=== PATIENT | male | born 1950 | race Caucasian/White ===

== ENCOUNTER 2018-06-16 09:41 | Outpatient (CLI) | payer OTHER ==
[2018-06-16 19:05] LABS: ALBUMIN 4.7 g/dL (3.2-5.5); ALBUMIN/GLOBULIN RATIO 1.3 (1.0-2.2); ALKALINE PHOSPHATASE 56 IU/L (42-121); ALT ALANINE AMINOTRANSFERASE 57 IU/L (10-60); AST ASPARTATE AMINOTRANSFERASE 76 IU/L (10-42); BILIRUBIN,TOTAL 0.9 mg/dL (0.2-1.0); BUN - BLOOD UREA NITROGEN 17 mg/dL (6-20); CALCIUM 9.1 mg/dL (8.5-10.3); CARBON DIOXIDE - CO2 29 mmol/L (21-32); CHLORIDE 98 mmol/L (101-111); CHOL/HDL RATIO 2.2 (<5.0); CHOLESTEROL 251 mg/dL; GFR - MDRD 75 (>89); GLUCOSE 100 mg/dL (70-100); HDL CHOLESTEROL 112 mg/dL; LDL CHOLESTEROL,CALCULATED 119 mg/dL; LDL/HDL RATIO 1.1 (<3.6); SODIUM 139 mmol/L (135-145); TOTAL PROTEIN 8.3 g/dL (6.7-8.2); VLDL CHOLESTEROL 20 mg/dL
[2018-06-16 19:12] LABS: THYROID STIMULATING HORMONE 3.18 uIU/mL (0.34-5.60)
[2018-06-16 19:22] LABS: BASOPHILS % (AUTO) 1.1 %; EOSINOPHILS # (AUTO) 0.1 10^3/uL (0.0-0.7); EOSINOPHILS % (AUTO) 2.7 %; HGB - HEMOGLOBIN 15.6 g/dL (14.0-18.0); LYMPHOCYTES # (AUTO) 0.9 10^3/uL (1.5-3.5); LYMPHOCYTES % (AUTO) 29.3 %; MEAN CORPUSCULAR HEMOGLOBIN 35.9 pg (27.0-31.0); MEAN CORPUSCULAR HGB CONC 33.2 g/dL (32.0-36.0); MEAN CORPUSCULAR VOLUME 108.2 fL (80.0-94.0); MONOCYTES # (AUTO) 0.3 10^3/uL (0.0-1.0); MONOCYTES % (AUTO) 10.4 %; NEUTROPHILS # (AUTO) 1.8 10^3/uL (1.5-6.6); NEUTROPHILS % (AUTO) 56.5 %; PLT - PLATELET COUNT 116 10^3/uL (130-450); RED BLOOD COUNT 4.34 10^6/uL (4.70-6.10); RED CELL DISTRIBUTION WIDTH 13.8 % (12.0-15.0); WHITE BLOOD COUNT 3.2 x10^3/uL (4.8-10.8)
[2018-06-16 19:45] LABS: HB2 TOTAL 16.6 g/dL; HEMOGLOBIN A1C 0.56 g/dL; HEMOGLOBIN A1C % 5.2 % (4.6-6.2)
[2018-06-17 14:37] LABS: HEPATITIS C ANTIBODY NON-REACTIVE (NON-REACTIVE)
== END 2018-06-16 09:42 | disposition home or self-care (01) ==
LOC: LAB.F 09:41
PROVIDERS: ATTEND Internal Medicine
DX: I10 Essential (primary) hypertension (principal); Z13.6 Encounter for screening for cardiovascular disorders; Z12.5 Encounter for screening for malignant neoplasm of prostate; R20.0 Anesthesia of skin; Z79.899 Other long term (current) drug therapy
CPT/HCPCS: 36415; 80053; 80061; 81001; 81003; 82607; 82746; 83036; 83721; 84153; 84443; 85025; 86803; 87086

== ENCOUNTER 2018-06-17 13:08 | Outpatient (CLI) | payer OTHER ==
[2018-06-17 17:56] LABS: BILIRUBIN,URINE NEGATIVE (NEGATIVE); GLUCOSE, URINE (UA) NEGATIVE (NEGATIVE); KETONES,URINE (UA) 15 mg/dL (NEGATIVE); LEUKOCYTE ESTERASE, URINE NEGATIVE (NEGATIVE); NITRITE,URINE NEGATIVE (NEGATIVE); OCCULT BLOOD,URINE LARGE (NEGATIVE); PH,URINE 6.5 PH (5.0-7.5); PROTEIN,URINE TRACE mg/dL (NEGATIVE); UROBILINOGEN,URINE 0.2 (NORMAL) E.U./dL (NORMAL)
[2018-06-17 17:58] LABS: CLARITY,URINE CLOUDY (CLEAR)
[2018-06-17 18:08] LABS: BACTERIA,URINE None Seen /HPF (None Seen); RBC,URINE TNTC /HPF (0-5); SQUAMOUS EPITHELIAL CELL,UR NONE SEEN (<= Few)
== END 2018-06-17 13:09 | disposition home or self-care (01) ==
LOC: LAB.F 13:08
PROVIDERS: ATTEND Internal Medicine
DX: Z12.11 Encounter for screening for malignant neoplasm of colon (principal); Z12.12 Encounter for screening for malignant neoplasm of rectum; I10 Essential (primary) hypertension
CPT/HCPCS: 81001; 81003; 82274; 87086

== ENCOUNTER 2019-01-30 16:15 | Emergency (ER) | payer MEDICARE, OTHER ==
[2019-01-30 16:28] VITALS: BP 191/95
[2019-01-30] MEDS ORDERED: ONDANSETRON 4 MG/2 ML VIAL IVP STA (16:31)
[2019-01-30] MEDS ORDERED: KETOROLAC 30 MG/ML VIAL IVP STA (16:31)
--- NOTE | 2019-01-30 16:33 | ED Physician Documentation ---
PD HPI ABD PAIN - Stated complaint Stated Complaint: LEFT SIDE PAIN - Chief complaint Chief Complaint: Abd Pain - History obtained from History obtained from: Patient - History of Present Illness Timing - onset: Today (5 days ago he was cutting wood, he fell over backwards and hit his buttock and left side. It was not really bothering him much. Today after breakfast he developed severe left flank and left lower abdominal pain that comes in waves and is made him nauseous. He tried to have a bowel movement and nothing changed. No urinary complaints. No history of renal colic.) Review of Systems Constitutional: reports: Reviewed and negative Nose: denies: Rhinorrhea / runny nose Cardiac: denies: Chest pain / pressure, Palpitations Respiratory: denies: Dyspnea, Cough GI: reports: Abdominal Pain, Nausea. denies: Vomiting, Constipation, Diarrhea PD PAST MEDICAL HISTORY - Past Medical History Past Medical History: Yes Cardiovascular: Hypertension Respiratory: None Endocrine/Autoimmune: None GI: None : None HEENT: None Psych: Anxiety, Panic attacks Musculoskeletal: None Derm: None - Past Surgical History Past Surgical History: Yes General: Hiatal hernia repair - Present Medications Home Medications: Ambulatory Orders Medication Instructions Recorded Confirmed Atenolol 25 mg PO BID 12/28/13 12/29/13 Lisinopril 40 mg PO DAILY 12/28/13 12/29/13 Ibuprofen [Motrin] 800 mg PO Q8H PRN #30 tablet 01/30/19 Ondansetron Odt [Zofran] 4 mg TL Q6H PRN #10 tablet 01/30/19 Oxycodone HCl/Acetaminophen 1 - 2 each PO Q6H PRN #14 tablet 01/30/19 [Percocet 5-325 mg Tablet] Tamsulosin [Flomax] 0.4 mg PO DAILY #14 capsule 01/30/19 - Allergies Allergies/Adverse Reactions: Allergies Allergy/AdvReac Type Severity Reaction Status Date / Time No Known Drug Allergies Allergy Verified 12/28/13 13:28 - Social History Does the pt smoke?: Yes Smoking Status: Former smoker Does the pt drink ETOH?: No Does the pt have substance abuse?: No - Immunizations Immunizations are current?: No - POLST Patient has POLST: No PD ED PE NORMAL - Vitals Vital signs reviewed: Yes - General General: Alert and oriented X 3, No acute distress - Cardiac Cardiac: RRR, No murmur - Respiratory Respiratory: No respiratory distress, Clear bilaterally - Abdomen Abdomen: Normal bowel sounds, Soft, Non tender - Back Back: No CVA TTP, No spinal TTP - Extremities Extremities: No edema, No calf tenderness / cord - Neuro Neuro: Alert and oriented X 3, Normal speech Results - Vitals Vitals: Vital Signs - 24 hr 01/30/19 16:18 Temperature 36.5 C Heart Rate 107 H Respiratory 14 Rate Blood Pressure 191/95 H O2 Saturation 97 Oxygen O2 Source Room air - Labs Labs: Laboratory Tests 01/30/19 01/30/19 01/30/19 16:50 16:50 17:50 WBC 6.5 RBC 4.18 L Hgb 15.6 Hct 44.8 MCV 107.2 H MCH 37.3 H MCHC 34.8 RDW 12.1 Plt Count 113 L MPV 10.1 Neut # (Auto) 4.6 Lymph # (Auto) 1.0 L [place] # (Auto) 0.7 Eos # (Auto) 0.0 Baso # (Auto) 0.1 Absolute Nucleated RBC 0.00 Nucleated RBC % 0.0 Sodium 138 Potassium 4.3 Chloride 97 L Carbon Dioxide 26 Anion Gap 15.0 H BUN 21 H Creatinine 1.2 Estimated GFR (MDRD) 60 L Glucose 119 H Calcium 9.3 Total Bilirubin 1.3 H AST 93 H ALT 48 Alkaline Phosphatase 76 Total Protein 7.8 Albumin 4.5 Globulin 3.3 Albumin/Globulin Ratio 1.4 Lipase 26 Urine Color YELLOW Urine Clarity CLEAR Urine pH 6.5 Ur Specific [place] 1.025 Urine Protein 30 H Urine Glucose (UA) NEGATIVE Urine Ketones 15 H Urine Occult Blood SMALL H Urine Nitrite NEGATIVE Urine Bilirubin NEGATIVE Urine Urobilinogen 1 (NORMAL) Ur Leukocyte Esterase NEGATIVE Urine RBC 6-10 H Urine WBC 0-3 Ur Squamous Epith Cells NONE SEEN Urine Bacteria None Seen Ur Microscopic Review INDICATED Urine Culture Comments NOT INDICATED - Rads (name of study) CT KUB Radiology: EMP read contemporaneously (Moderate left hydronephrosis, hydroureter, perinephric stranding due to a 5 x 3 mm obstructing stone at the left UVJ. Fatty liver, isodensity of 3.6 x 3.6 cm within segment 2 of the liver, needs follow-up imaging. Mild pancreatic fat stranding. Diverticulosis without diverticulitis.) PD MEDICAL DECISION MAKING - ED course ED course: 68-year-old gentleman with mild trauma, this was followed after a delay by pain most reminiscent of renal colic which is proven on CT. Incidental findings as shown and discussed with patient's and the important a follow-up was noted. He will also decrease his alcohol use a little bit. He did not want any narcotic pain medication here, he was driving. Departure - Departure Disposition: 01 Home, Self Care Clinical Impression: Renal colic, Liver mass Condition: Good Record reviewed to determine appropriate education?: Yes Instructions: ED Stone Renal W Colic Prescriptions: Ibuprofen [Motrin] 800 mg PO Q8H PRN #30 tablet PRN Reason: PAIN &/OR FEVER Ondansetron Odt [Zofran] 4 mg TL Q6H PRN #10 tablet PRN Reason: Nausea / Vomiting Oxycodone HCl/Acetaminophen [Percocet 5-325 mg Tablet] 1 - 2 each PO Q6H PRN #14 tablet PRN Reason: pain Tamsulosin [Flomax] 0.4 mg PO DAILY #14 capsule Comments: If the pain lasts for more than a few days, call the [facility] for follow- up with urologist. Return for new or worsening symptoms. Also as discussed you have a lesion in your liver. It is unclear what this represents. Needs further work-up with Dr. Ramírez, either with a liver specific MRI or a liver specific CT. Return for new or worsening symptoms. Try to cut down on alcohol and do not drink or drive with prescription pain medications. Your blood pressure was elevated today on check into the emergency department. This does not mean that you have hypertension, it is a common phenomenon to come to the emergency department and have elevated blood pressure. I recommend that you see your primary care physician within the week to have it rechecked when you are feeling better. Do not drink or drive while taking narcotic pain medication. Note that many narcotic pain relievers also contain Tylenol/acetaminophen. Please ensure that your total dose of acetaminophen from all sources does not exceed 3 g (3000 mg) per day. You may get constipated while on this medication. Take a stool softener such as Colace twice a day while you are on it. Also add an rjuo-hfl-bbtiwyk laxative such as senna or MiraLAX on any day that you do not have a bowel movement. If you received a narcotic pain medication or sedative while in the emergency department, do not drive for the next 24 hours.
[2019-01-30] MEDS ORDERED: SODIUM CHLORIDE 0.9% 1,000 ML IV ONE (16:55)
[2019-01-30 16:57] LABS: BASOPHILS # (AUTO) 0.1 10^3/uL (0.0-0.1); BASOPHILS % (AUTO) 1.1 %; EOSINOPHILS % (AUTO) 0.3 %; HGB - HEMOGLOBIN 15.6 g/dL (14.0-18.0); LYMPHOCYTES % (AUTO) 15.4 %; MEAN CORPUSCULAR HEMOGLOBIN 37.3 pg (27.0-31.0); MEAN CORPUSCULAR HGB CONC 34.8 g/dL (32.0-36.0); MEAN CORPUSCULAR VOLUME 107.2 fL (80.0-94.0); MEAN PLATELET VOLUME 10.1 fL (7.4-11.4); MONOCYTES # (AUTO) 0.7 10^3/uL (0.0-1.0); MONOCYTES % (AUTO) 11.4 %; NEUTROPHILS # (AUTO) 4.6 10^3/uL (1.5-6.6); NEUTROPHILS % (AUTO) 71.6 %; PLT - PLATELET COUNT 113 10^3/uL (130-450); RED BLOOD COUNT 4.18 10^6/uL (4.70-6.10); RED CELL DISTRIBUTION WIDTH 12.1 % (12.0-15.0); WHITE BLOOD COUNT 6.5 x10^3/uL (4.8-10.8)
[2019-01-30 17:10] LABS: ALBUMIN 4.5 g/dL (3.2-5.5); ALBUMIN/GLOBULIN RATIO 1.4 (1.0-2.2); BILIRUBIN,TOTAL 1.3 mg/dL (0.2-1.0); CALCIUM 9.3 mg/dL (8.5-10.3); CREATININE 1.2 mg/dL (0.6-1.2); TOTAL PROTEIN 7.8 g/dL (6.7-8.2)
--- NOTE | 2019-01-30 17:11 | CT Report ---
Reason: L flank pain Procedure Date: 01/30/2019 Accession Number: [id number] / [id number] Procedure: CT - Abdomen/Pelvis WO CPT Code: FULL RESULT: EXAM: CT ABDOMEN AND PELVIS (CT KUB) EXAM DATE: 01/30/2019 04:44 PM. CLINICAL HISTORY: Left flank pain COMPARISONS: None. TECHNIQUE: Routine axial helical CT imaging was performed through the abdomen and pelvis without IV contrast. Reconstructions: Coronal and sagittal. In accordance with CT protocol optimization, one or more of the following dose reduction techniques were utilized for this exam: automated exposure control, adjustment of mA and/or KV based on patient size, or use of iterative reconstructive technique. FINDINGS: Lung Bases: Unremarkable. Right Kidney/Ureter: No stones, hydronephrosis, or hydroureter. No perinephric fat stranding. Left Kidney/Ureter: There is mild to moderate left hydronephrosis, hydroureter, and perinephric stranding. There is a 0.5 x 0.3 cm stone at the left ureterovesicular junction. Other Solid Organs: There is hepatic steatosis. There is a 3.6 x 3.6 cm isodensity within segment 2 of the liver (image 27 series 3). The spleen demonstrates no acute abnormalities. There is mild peripancreatic fat stranding. The adrenal glands are normal. Gallbladder/Bile Ducts: Unremarkable. Peritoneal Cavity: There is distal colon diverticulosis. There is no evidence of diverticulitis. Stomach and small bowel demonstrate no acute noncontrast abnormality is. There are no enlarged mesenteric or retroperitoneal lymph nodes. Pelvic Organs: No bladder stones or wall thickening. Noncontrast images of the visualized pelvic organs are unremarkable. Vasculature: Unremarkable. Other: There is a geographic lytic focus within the right femoral head. This could represent a subchondral cyst. There is lumbar spine and bilateral hip degenerative disease. IMPRESSION: 1. There is mild to moderate left hydronephrosis, hydroureter, and perinephric stranding. There is a 0.5 x 0.3 cm obstructing stone at the left ureterovesicular junction. 2. There is hepatic steatosis. There is a 3.6 x 3.6 cm circumscribed isodensity within segment 2 of the liver. Differential considerations include mass or area of geographic increased focal fat. Nonemergent dedicated hepatic CT or MRI could be used for further evaluation of this finding as indicated. 3. There is fatty replacement of the pancreas. There is mild peripancreatic fat stranding. This could be seen with pancreatitis. Clinical correlation recommended. 4. There is distal colon diverticulosis without evidence of diverticulitis. RADIA
[2019-01-30 18:11] LABS: BILIRUBIN,URINE NEGATIVE (NEGATIVE); GLUCOSE, URINE (UA) NEGATIVE (NEGATIVE); KETONES,URINE (UA) 15 mg/dL (NEGATIVE); LEUKOCYTE ESTERASE, URINE NEGATIVE (NEGATIVE); NITRITE,URINE NEGATIVE (NEGATIVE); OCCULT BLOOD,URINE SMALL (NEGATIVE); PH,URINE 6.5 PH (5.0-7.5); PROTEIN,URINE 30 mg/dL (NEGATIVE); UROBILINOGEN,URINE 1 (NORMAL) E.U./dL (NORMAL)
[2019-01-30 18:12] LABS: CLARITY,URINE CLEAR (CLEAR)
[2019-01-30 18:22] LABS: BACTERIA,URINE None Seen /HPF (None Seen); SQUAMOUS EPITHELIAL CELL,UR NONE SEEN (<= Few)
[2019-01-30] MEDS ORDERED: oxyCODONE/ACET 5/325 Prepack 4 PO STA (18:40)
[2019-01-30] MEDS ORDERED: TAMSULOSIN 0.4 MG CAPSULE PO STA (18:40)
[2019-01-30] MEDS ORDERED: ONDANSETRON ODT 4 MG Prepack 2 TL STA (18:40)
== END 2019-01-30 18:53 | disposition home or self-care (01) ==
LOC: ED 16:15
DX: N13.2 Hydronephrosis with renal and ureteral calculous obstruction (principal); R16.0 Hepatomegaly, not elsewhere classified; I10 Essential (primary) hypertension; Z87.891 Personal history of nicotine dependence
CPT/HCPCS: 36415; 74176; 80053; 81001; 83690; 85025; 96361; 96374; 99283; 99284; A9270; 81003; 87086

== ENCOUNTER 2019-02-10 08:29 | Outpatient (CLI) | payer MEDICARE ==
[2019-02-10] MEDS ORDERED: GADOBUTROL 15 MMOL/15 ML VIAL ONE (08:56)
== END 2019-02-10 08:30 | disposition home or self-care (01) ==
LOC: DI 08:29
PROVIDERS: ATTEND Internal Medicine
DX: R93.2 Abnormal findings on diagnostic imaging of liver and biliary tract (principal); Z53.9 Procedure and treatment not carried out, unspecified reason

== ENCOUNTER 2021-09-16 05:49 | Outpatient (CLI) | payer MEDICARE | END 2021-09-16 05:50 | disposition left against medical advice (07) | LOC: EMS 05:49 | DX: S01.111A Laceration without foreign body of right eyelid and periocular area, initial encounter (principal); W18.39XA Other fall on same level, initial encounter; Y92.009 Unspecified place in unspecified non-institutional (private) residence as the place of occurrence of the external cause ==

== ENCOUNTER 2021-09-16 07:50 | Emergency (ER) | payer MEDICARE ==
--- NOTE | 2021-09-16 08:10 | ED Physician Documentation ---
History of Present Illness - Stated complaint Stated Complaint: HEAD LAC - History obtained from History obtained from: Patient, Family - History of Present Illness Timing: Last night Pain level max: 2 Pain level now: 0 - Additonal information Additional information: Patient is a 71-year-old male who states that he tripped and fell last night. He states he is unable to open his right eye this morning. Has lacerations to the right cheek, right lower eyelid and right forehead. He states he cannot get these to stop bleeding. He thinks he fell around 2 in the morning. He is unsure what happened, states she thinks he had a DVD player. Patient states that he has no pain currently. Unknown last tetanus shot. Denies any neck or back pain. Review of Systems Ten Systems: 10 systems reviewed and negative Constitutional: denies: Fever, Chills Ears: denies: Ear pain Nose: denies: Rhinorrhea / runny nose, Congestion Respiratory: denies: Cough GI: denies: Abdominal Pain, Vomiting, Diarrhea Skin: denies: Rash PD PAST MEDICAL HISTORY - Past Medical History Cardiovascular: Hypertension Respiratory: None Endocrine/Autoimmune: None GI: None : None HEENT: None Psych: Anxiety, Panic attacks Musculoskeletal: None Derm: None - Past Surgical History Past Surgical History: Yes General: Hiatal hernia repair - Present Medications Home Medications: Ambulatory Orders Medication Instructions Recorded Confirmed cephALEXin [Keflex] 500 mg PO Q6H #28 cap 09/16/21 - Allergies Allergies/Adverse Reactions: Allergies Allergy/AdvReac Type Severity Reaction Status Date / Time No Known Drug Allergies Allergy Verified 09/16/21 08:04 - Social History Does the pt smoke?: Yes Smoking Status: Former smoker Does the pt drink ETOH?: No Does the pt have substance abuse?: No - Immunizations Immunizations are current?: No - POLST Patient has POLST: No PD ED PE NORMAL - Vitals Vital signs reviewed: Yes - General General: Alert and oriented X 3, No acute distress, Well developed/nourished - HEENT HEENT: PERRL, Moist mucous membranes, Other (Large laceration to the center of the forehead with a large hematoma. 3 cm laceration to the right lower eyelid. Right Eye is swollen shut. 4 cm laceration to the right cheek.) - Neck Neck: Supple, no meningeal sign, No bony TTP - Cardiac Cardiac: RRR, Strong equal pulses - Respiratory Respiratory: No respiratory distress, Clear bilaterally - Abdomen Abdomen: Soft, Non tender, Non distended - Derm Derm: Warm and dry - Extremities Extremities: No deformity, No tenderness to palpate, Normal ROM s pain - Neuro Neuro: Alert and oriented X 3 - Psych Psych: Normal mood, Normal affect Results - Vitals Vitals: Vital Signs - 24 hr 09/16/21 09/16/21 09/16/21 08:04 08:20 08:30 Temperature 36.4 C L Heart Rate 112 H 102 H 94 Respiratory 18 18 16 Rate Blood Pressure 153/97 H 158/101 H 143/89 H O2 Saturation 97 97 94 Oxygen O2 Source Room air - Labs Labs: Laboratory Tests 09/16/21 09/16/21 09/16/21 08:20 08:20 08:20 WBC 4.7 L RBC 4.22 L Hgb 15.0 Hct 44.2 MCV 104.7 H MCH 35.5 H MCHC 33.9 RDW 12.7 Plt Count 39 L MPV 10.5 Neut # (Auto) 3.6 Lymph # (Auto) 0.6 L [place] # (Auto) 0.4 Eos # (Auto) 0.1 Baso # (Auto) 0.0 Absolute Nucleated RBC 0.00 Nucleated RBC % 0.0 PT 13.4 H INR 1.2 APTT 31.1 Sodium 136 Potassium 4.1 Chloride 96 L Carbon Dioxide 26 Anion Gap 14.0 H BUN 15 Creatinine 1.0 Estimated GFR (MDRD) 74 L Glucose 139 H Calcium 8.7 Total Bilirubin 1.5 H AST 114 H ALT 52 Alkaline Phosphatase 62 Total Protein 8.1 Albumin 4.3 Globulin 3.8 Albumin/Globulin Ratio 1.1 Ethyl Alcohol 177.8 - Rads (name of study) Head CT Radiology: Final report received, EMP read contemporaneously, See rad report Cervical spine CT Radiology: Final report received, EMP read contemporaneously, See rad report Maxillofacial CT Radiology: Final report received, EMP read contemporaneously, See rad report Procedures - Laceration (location) Forehead Length in cm: 4 Wound type: Curved, Into subcut fat, Clean Neurovascular status: Sensory intact, Motor intact, Vascular intact Anesthesia: Lidocaine 1% with epi Wound preparation: Irrigated copiously NS Skin layer closure: Interrupted, Size #-0 - enter number (5), Sutures - enter # (8) Other: Patient tolerated well, No complications, Neurovascular intact, Dressing applied, Tetanus booster given R lower eyelid Wound type: Linear, Into subcut fat, Clean Neurovascular status: Sensory intact, Motor intact, Vascular intact Anesthesia: Lidocaine 1% with epi Wound preparation: Irrigated copiously NS Skin layer closure: Nylon, Interrupted, Size #-0 - enter number (5), Sutures - enter # (4) Other: Patient tolerated well, No complications, Neurovascular intact, Tetanus booster given R cheek Length in cm: 6 Wound type: Linear, Superficial, Clean Neurovascular status: Sensory intact, Motor intact, Vascular intact Wound preparation: Irrigated copiously NS Skin layer closure: Dermabond Other: Patient tolerated well, No complications, Neurovascular intact, Tetanus booster given PD MEDICAL DECISION MAKING - ED course Complexity details: reviewed results, re-evaluated patient, considered differential, d/w patient ED course: 71-year-old male with multiple facial lacerations after a ground-level fall last night. Has very significant right-sided facial swelling and hematoma. He states that his vision was entirely normal after the fall. His right sided eyelids are swollen shut today. Unable to visualize the ocular surface. The patient does not want to be transferred for ophthalmology evaluation. The la cerations were repaired. Significant swelling of all areas limited repair. We will place the patient on Keflex as well. We will have him follow-up with oral maxillofacial surgery on Saturday as well as ophthalmology. Patient will return if he worsens. Tdap given. Warnings of infection and instructions on wound care given at bedside. Also counseled on how to minimize scarring. Patient and family counseled regarding signs and symptoms for which I believe and urgent re- evaluation would be necessary. Patient with good understanding of and agreement to plan and is comfortable going home at this time This document was made in part using voice recognition software. While efforts are made to proofread this document, sound alike and grammatical errors may occur. Departure - Departure Disposition: 01 Home, Self Care Clinical Impression: Periorbital hematoma of right eye Facial contusion Qualifiers: Encounter type: initial encounter Qualified Code(s): S00.83XA - Contusion of other part of head, initial encounter Facial laceration Qualifiers: Encounter type: initial encounter Qualified Code(s): S01.81XA - Laceration without foreign body of other part of head, initial encounter Condition: Good Instructions: ED Head Injury Closed, ED Hematoma, ED Laceration Facial Sutr Tape Follow-Up: Alla Ramírez MD [Primary Care Provider] - Cristiana Cueto DDS [Provider Admit Priv/Credential] - CRISTIANA CUETO [Physician No Access] - 09/18/21 Shahid Duque MD [Provider Admit Priv/Credential] - 09/18/21 Prescriptions: cephALEXin [Keflex] 500 mg PO Q6H #28 cap Comments: It is important that you see oral maxillofacial surgery and ophthalmology on Saturday. Please call their offices early Saturday morning for an appointment. Please return if you worsen sooner. The sutures will be removed in approximately 7 to 10 days. Your eye will need a full evaluation when the swelling has decreased. Your CT scan of your head, face and neck do not show any acute abnormalities today. Your prescriptions were sent to [facility] in [place].
[2021-09-16] MEDS ORDERED: TETANUS/DIPHTHERIA/PERTUSSIS 0.5 ML SYRINGE IM ONE (08:17)
[2021-09-16] MEDS ORDERED: LIDOCAINE 1%-EPI 1:100000 20 ML MDV SUBQ STA (08:20)
[2021-09-16 08:27] LABS: BASOPHILS % (AUTO) 0.8 %; EOSINOPHILS # (AUTO) 0.1 10^3/uL (0.0-0.7); EOSINOPHILS % (AUTO) 1.5 %; HCT - HEMATOCRIT 44.2 % (42.0-52.0); LYMPHOCYTES # (AUTO) 0.6 10^3/uL (1.5-3.5); LYMPHOCYTES % (AUTO) 13.4 %; MEAN CORPUSCULAR HEMOGLOBIN 35.5 pg (27.0-31.0); MEAN CORPUSCULAR HGB CONC 33.9 g/dL (32.0-36.0); MEAN CORPUSCULAR VOLUME 104.7 fL (80.0-94.0); MEAN PLATELET VOLUME 10.5 fL (7.4-11.4); MONOCYTES # (AUTO) 0.4 10^3/uL (0.0-1.0); MONOCYTES % (AUTO) 8.1 %; NEUTROPHILS # (AUTO) 3.6 10^3/uL (1.5-6.6); PLT - PLATELET COUNT 39 10^3/uL (130-450); RED BLOOD COUNT 4.22 10^6/uL (4.70-6.10); RED CELL DISTRIBUTION WIDTH 12.7 % (12.0-15.0); WHITE BLOOD COUNT 4.7 x10^3/uL (4.8-10.8)
--- NOTE | 2021-09-16 08:31 | CT Report ---
PROCEDURE: MAXILLOFACIAL WO INDICATIONS: fall, head/neck/facial injuries TECHNIQUE: Noncontrast 1.5 mm thick axial images acquired from the mandible through the frontal sinuses, with co andres and sagittal reformatting. For radiation dose reduction, the following was used: automated ex posure control, adjustment of mA and/or kV according to patient size. COMPARISON: Correlation is made with the accompanying head CT and cervical spine CT, 09/26/2021. FINDINGS: Image quality: Excellent. Bones and teeth: Orbital roberts are intact. Sinus roberts show no fracture or deformity. Nasal bones and septum are intact. Visualized portions of the mandible demonstrate no fractures or subluxation. Zygomatic arches are intact. Pterygoid plates are intact. Visualized portions of the skull base an d auditory canals are intact. Sinuses: Focal mucosal thickening is seen involving the right maxillary sinus. This measures low den sity of 13 Hounsfield units and is now believed to be related to blood. Mild mucosal thickening is se en elsewhere within the paranasal sinuses. Soft tissues: There is a large right cheek hematoma seen. The soft tissue swelling with hematoma can also be also seen involving the right paravertebral region on the right for head No henrietta soft tissue gas is seen. Atherosclerotic calcification is seen. Vascular: Visualized vascular structures appear normal in the absence of contrast. Bony vascular fo ramina and canals are intact. IMPRESSION: Large right facial hematoma, without an associated fracture identified. Paranasal sinus disease is seen. Reviewed by: Dimitrios Abdi MD on 09/16/2021 7:30 AM [facility] Approved by: Dimitrios Abdi MD on 09/16/2021 7:30 AM [facility] Station ID: [id number]
[2021-09-16 08:32] LABS: INR 1.2 (0.8-1.2); PT - PROTHROMBIN TIME 13.4 secs (9.9-12.6)
--- NOTE | 2021-09-16 08:33 | CT Report ---
PROCEDURE: HEAD WO INDICATIONS: fall, head/neck/facial injuries TECHNIQUE: Noncontrast 4.5 mm thick angled axial sections acquired from the foramen magnum to the vertex. For r adiation dose reduction, the following was used: automated exposure control, adjustment of mA and/or kV according to patient size. COMPARISON: Correlation is made with the accompanying maxillofacial CT and cervical spine CT . FINDINGS: Image quality: Excellent. CSF spaces: Basal cisterns are patent. No extra-axial fluid collections. Ventricles are normal in size and shape. Brain: No midline shift. No intracranial masses or hemorrhage. Cristina-white matter interface is norm al. Skull and face: Extensive right-sided soft tissue swelling with hematoma can be seen involving the ri ght for head, the right paravertebral region, and the visualized right cheek. Sinuses: Mucosal thickening can be seen within the paranasal sinuses, which is most prominent within the right maxillary sinuses. This soft tissue swelling is a low density and is felt unlikely to be re lated to blood. No significant abnormal fluid can be seen within the mastoid air cells. IMPRESSION: No intracranial hemorrhage is seen. No significant intracranial abnormality is seen. Extensive right-sided facial soft tissue swelling, without an associated fracture identified. Paranasal sinus disease noted. Reviewed by: Dimitrios Abdi MD on 09/16/2021 7:31 AM [facility] Approved by: Dimitrios Abdi MD on 09/16/2021 7:31 AM [facility] Station ID: [id number]
--- NOTE | 2021-09-16 08:34 | CT Report ---
PROCEDURE: CERVICAL SPINE WO INDICATIONS: fall, head/neck/facial injuries TECHNIQUE: Noncontrast 3 mm thick sections acquired from the skull base to the T4 level. Sagittal and coronal r eformats were then constructed. For radiation dose reduction, the following was used: automated exp osure control, adjustment of mA and/or kV according to patient size. COMPARISON: Correlation is made with the accompanying head CT and maxillofacial CT, 09/16/2021 FINDINGS: Image quality: Excellent. Bones: No fractures or dislocations. Visualized superior ribs are intact. There is moderate to severe disc space narrowing at C3-C4, with moderate disc space narrowing at C4-C 5 and C5-C6. Mild disc space narrowing is seen at C6-C7. Focal degenerative change can also be seen i nvolving the C1-C2 interface anteriorly. Upper thoracic spine degenerative changes are also seen. There is mild retrolisthesis seen at C3-C4, with minimal retrolisthesis at C4-C5 and C5-C6. Soft tissues: Prevertebral soft tissues are normal in thickness. No paravertebral hematomas. No ap ical pneumothoraces. Atherosclerotic calcification is seen. IMPRESSION: Negative for displaced fracture. Cervical spine degenerative changes are seen, which are worst at C3-C4. Reviewed by: Dimitrios Abdi MD on 09/16/2021 7:33 AM [facility] Approved by: Dimitrios Abdi MD on 09/16/2021 7:33 AM [facility] Station ID: [id number]
[2021-09-16 08:39] LABS: PARTIAL THROMBOPLASTIN TIME 31.1 secs (24.9-33.3)
[2021-09-16 08:40] LABS: ALBUMIN 4.3 g/dL (3.2-5.5); ALBUMIN/GLOBULIN RATIO 1.1 (1.0-2.2); BILIRUBIN,TOTAL 1.5 mg/dL (0.2-1.0); CALCIUM 8.7 mg/dL (8.5-10.3); ETOH - ETHANOL 177.8 mg/dL; POTASSIUM 4.1 mmol/L (3.5-5.0); TOTAL PROTEIN 8.1 g/dL (6.7-8.2)
[2021-09-16 08:46] VITALS: BP 143/89
== END 2021-09-16 09:29 | disposition home or self-care (01) ==
LOC: ED 07:50
DX: S01.411A Laceration without foreign body of right cheek and temporomandibular area, initial encounter (principal); S01.81XA Laceration without foreign body of other part of head, initial encounter; S01.111A Laceration without foreign body of right eyelid and periocular area, initial encounter; Z87.891 Personal history of nicotine dependence; W01.0XXA Fall on same level from slipping, tripping and stumbling without subsequent striking against object, initial encounter; F10.129 Alcohol abuse with intoxication, unspecified; Y90.6 Blood alcohol level of 120-199 mg/100 ml; Z23 Encounter for immunization; Z71.85 Encounter for immunization safety counseling
CPT/HCPCS: 12016; 36415; 70450; 70486; 72125; 80053; 85025; 85610; 85730; 90471; 90715; 99284; G0480; 80320

== ENCOUNTER 2022-03-15 08:00 | Outpatient (CLI) | payer MEDICARE ==
[2022-03-15 16:10] LABS: BASOPHILS # (AUTO) 0.1 10^3/uL (0.0-0.1); BASOPHILS % (AUTO) 1.4 %; EOSINOPHILS % (AUTO) 1.1 %; HCT - HEMATOCRIT 44.4 % (42.0-52.0); HGB - HEMOGLOBIN 14.7 g/dL (14.0-18.0); LYMPHOCYTES # (AUTO) 0.8 10^3/uL (1.5-3.5); MEAN CORPUSCULAR HEMOGLOBIN 35.5 pg (27.0-31.0); MEAN CORPUSCULAR HGB CONC 33.1 g/dL (32.0-36.0); MEAN CORPUSCULAR VOLUME 107.2 fL (80.0-94.0); MEAN PLATELET VOLUME 11.7 fL (7.4-11.4); MONOCYTES # (AUTO) 0.5 10^3/uL (0.0-1.0); MONOCYTES % (AUTO) 12.6 %; NEUTROPHILS # (AUTO) 2.3 10^3/uL (1.5-6.6); NEUTROPHILS % (AUTO) 63.9 %; PLT - PLATELET COUNT 69 10^3/uL (130-450); RED BLOOD COUNT 4.14 10^6/uL (4.70-6.10); WHITE BLOOD COUNT 3.6 x10^3/uL (4.8-10.8)
[2022-03-15 16:25] LABS: ALBUMIN 3.8 g/dL (3.2-5.5); ALBUMIN/GLOBULIN RATIO 0.9 (1.0-2.2); ALKALINE PHOSPHATASE 74 IU/L (42-121); ALT ALANINE AMINOTRANSFERASE 33 IU/L (10-60); AST ASPARTATE AMINOTRANSFERASE 76 IU/L (10-42); BILIRUBIN,TOTAL 1.5 mg/dL (0.2-1.0); BUN - BLOOD UREA NITROGEN 18 mg/dL (6-20); CALCIUM 8.9 mg/dL (8.5-10.3); CARBON DIOXIDE - CO2 26 mmol/L (21-32); CHLORIDE 100 mmol/L (101-111); CHOL/HDL RATIO 2.2 (<5.0); CHOLESTEROL 154 mg/dL; CREATININE 0.8 mg/dL (0.6-1.2); GFR - MDRD 96 (>89); GLUCOSE 106 mg/dL (70-100); HDL CHOLESTEROL 69 mg/dL; LDL CHOLESTEROL,CALCULATED 74 mg/dL; LDL/HDL RATIO 1.1 (<3.6); POTASSIUM 4.2 mmol/L (3.5-5.0); SODIUM 136 mmol/L (135-145); TOTAL PROTEIN 8.1 g/dL (6.7-8.2); TRIGLYCERIDES 57 mg/dL; VLDL CHOLESTEROL 11 mg/dL
[2022-03-15 16:36] LABS: THYROID STIMULATING HORMONE 4.47 uIU/mL (0.34-5.60)
[2022-03-15 16:47] LABS: FOLATE 5.51 ng/mL (5.90 - >24.8)
[2022-03-16 03:09] LABS: HCV AB <0.1 s/co ratio (0.0-0.9)
== END 2022-03-15 08:01 | disposition home or self-care (01) ==
LOC: LAB.R 08:00
PROVIDERS: ATTEND Internal Medicine
DX: Z01.812 Encounter for preprocedural laboratory examination (principal); R05.3 Chronic cough; F41.9 Anxiety disorder, unspecified; R74.8 Abnormal levels of other serum enzymes; I10 Essential (primary) hypertension; L40.9 Psoriasis, unspecified; K40.90 Unilateral inguinal hernia, without obstruction or gangrene, not specified as recurrent; Z11.59 Encounter for screening for other viral diseases
CPT/HCPCS: 80053; 80061; 82607; 82746; 83721; 84443; 85025; 86803

== ENCOUNTER 2022-03-15 10:46 | Outpatient (CLI) | payer MEDICARE ==
--- NOTE | 2022-03-15 16:01 | XRAY Report ---
PROCEDURE: Chest 2 View X-Ray INDICATIONS: CHRONIC COUGH TECHNIQUE: 2 view(s) of the chest. COMPARISON: None. FINDINGS: Surgical changes and devices: None. Lungs and pleura: No pleural effusions or pneumothorax. No suspicious focal airspace opacity. Small left basilar granuloma. Mediastinum: Mediastinal contours are normal. Heart size is normal. Bones and chest wall: No suspicious bony abnormalities. Soft tissues appear unremarkable. IMPRESSION: No acute cardiopulmonary abnormality. Reviewed by: Waldo Carrillo MD on 03/15/2022 3:59 PM PDT Approved by: Waldo Carrillo MD on 03/15/2022 3:59 PM PDT Station ID: [id number]
== END 2022-03-15 10:47 | disposition home or self-care (01) ==
LOC: DI 10:46
PROVIDERS: ATTEND Internal Medicine
DX: R05.3 Chronic cough (principal); Z01.812 Encounter for preprocedural laboratory examination; F41.9 Anxiety disorder, unspecified; R74.8 Abnormal levels of other serum enzymes; I10 Essential (primary) hypertension; K40.90 Unilateral inguinal hernia, without obstruction or gangrene, not specified as recurrent; L40.9 Psoriasis, unspecified; Z11.59 Encounter for screening for other viral diseases
CPT/HCPCS: 80053; 80061; 82607; 82746; 83721; 84443; 85025; 86803

== ENCOUNTER 2022-05-11 07:49 | Day surgery (SDC) | payer MEDICARE ==
[~2022-05-11 07:49] MED LIST: BUPIVACAINE 0.5% PF 30 ML VIAL ONE; CEFAZOLIN 2G/50ML 0.9% NS 2 GM/50 ML BAG IV ONE
[2022-05-11] MEDS ORDERED: LACTATED RINGERS 1,000 ML IV ONE ×2 (08:37→11:20)
[2022-05-11] MEDS ORDERED: MIDAZOLAM 2 MG/2 ML VIAL ONE (09:14)
[2022-05-11] MEDS ORDERED: DEXAMETHASONE 4 MG/ML VIAL ONE (09:14)
[2022-05-11] MEDS ORDERED: ONDANSETRON 4 MG/2 ML VIAL ONE (09:14)
[2022-05-11] MEDS ORDERED: LIDOCAINE-PF 2% 10 ML AMP SUBQ ONE (09:14)
[2022-05-11] MEDS ORDERED: PROPOFOL 200 MG/20 ML VIAL IVP ONE (09:14)
[2022-05-11] MEDS ORDERED: fentaNYL 100 MCG/2 ML VIAL ONE (09:15)
[2022-05-11] MEDS ORDERED: fentaNYL 100 MCG/2 ML VIAL IVP PRN (09:16)
[2022-05-11] MEDS ORDERED: ONDANSETRON 4 MG/2 ML VIAL IVP PRN ×2 (09:16→11:11)
[2022-05-11] MEDS ORDERED: METOCLOPRAMIDE 10 MG/2 ML VIAL IVP PRN (09:16)
[2022-05-11] MEDS ORDERED: ATROPINE ABBOJECT 1 MG/10 ML SYRINGE IVP PRN (09:16)
[2022-05-11] MEDS ORDERED: HYDROmorphone 0.5 MG/0.5 ML SYRINGE IVP PRN ×2 (09:16→11:11)
[2022-05-11] MEDS ORDERED: NALOXONE 0.4 MG/ML VIAL IVP PRN (09:16)
[2022-05-11] MEDS ORDERED: MORPHINE 2 MG/ML CARPUJECT IVP PRN (09:16)
[2022-05-11] MEDS ORDERED: ePHEDrine 50 MG/ML VIAL IVP PRN (09:16)
--- NOTE | 2022-05-11 09:19 | ANESTHESIA ---
Pre-Anesthesia VS, & Labs - Diagnosis R inguinal hernia - Procedure R inguinal hernia repair Vital Signs: Temp Pulse Resp BP Pulse Ox O2 Flow Rate 37.5 C 96 18 96 05/11/22 08:06 05/11/22 08:06 05/11/22 08:06 05/11/22 08:06 Height: 6 ft Weight (kg): 109.1 kg Body Mass Index: 32.5 BMI Classification: Obese - NPO >8 hours Home Medications and Allergies Home Medications: Ambulatory Orders No Known Home Medications 05/08/22 Active Medications Metoclopramide HCl (Metoclopramide 10 Mg/2 Ml Vial) 10 mg IVP Q6HR PRN PRN Reason: N/V not relieved by Zofran Ondansetron HCl (Ondansetron 4 Mg/2 Ml Vial) 4 mg IVP ONCE PRN PRN Reason: N/V ([facility]) Stop: 05/12/22 09:16 No Known Home Medications 05/08/22 Allergies/Adverse Reactions: Allergies Allergy/AdvReac Type Severity Reaction Status Date / Time mercury (elemental) Allergy Unknown Verified 05/08/22 11:14 Anes History & Medical History - Anesthetic History Anesthesia Complications: reports: No previous complications Family history of Anesthesia Complications: Denies Family history of Malignant Hyperthermia: Denies - Medical History Cardiovascular: reports: Hypertension Pulmonary: reports: None, Other (chronic cough. ex-smoker) Gastrointestinal: reports: None Urinary: reports: Incontinence, Other Neuro: reports: None Musculoskeletal: reports: Chronic back pain, Other (chronic pain in hips and lower back) Endocrine/Autoimmune: reports: None Blood Disorders: reports: None Skin: reports: Psoriasis, Other (yeast infection in R groin- Dr Constance aware) Smoking Status: Former smoker Psychosocial: reports: Alcohol (ETOH daily) History of Cancer?: No - Surgical History General: reports: Other Exam General: Alert, Oriented x3, Cooperative Dental: Poor dentition Mouth Openin Fingerbreadth Neck Mobility: Normal Mallampati classification: II Thyromental Distance: 4-6 cm Respiratory: Lungs clear Cardiovascular: Regular rate Plan Anesthesia Type: General Consent for Procedure(s) Verified and Reviewed: Yes Code Status: Attempt Resuscitation ASA classification: 2-Mild systemic disease Is this case an emergency?: No
[2022-05-11] MEDS ORDERED: LACTATED RINGERS 1,000 ML IV SCH (10:00)
[2022-05-11] MEDS ORDERED: BUPIVACAINE 0.5% PF 30 ML VIAL INFIL ONE (10:13)
[2022-05-11] MEDS ORDERED: ePHEDrine 50 MG/ML VIAL IVP ONE (10:15)
[2022-05-11] MEDS ORDERED: ROCURONIUM 50 MG/5 ML VIAL ONE (10:27)
[2022-05-11] MEDS ORDERED: SUCCINYLCHOLINE 200 MG/10 ML VIAL ONE (10:27)
[2022-05-11] MEDS ORDERED: ACETAMINOPHEN 1,000 MG/100 ML 1,000 MG/100 ML BAG IV ONE (10:39)
[2022-05-11] MEDS ORDERED: SUGAMMADEX 200 MG/2 ML VIAL IVP ONE (10:41)
[2022-05-11] MEDS ORDERED: HYDROcod/ACETAM 5/325 MG TABLET PO PRN (11:11)
--- NOTE | 2022-05-11 11:16 | OPERATIVE REPORT ---
Operative Report - General Procedure Date: 05/11/22 Planned Procedure: Right inguinal herniorrhaphy Pre-Op Diagnosis: Symptomatic large right inguinal hernia Procedure Performed: Right Indirect inguinal hernia repair with mesh Post Op Diagnosis: Large right indirect inguinal hernia with communicating hydrocele - Procedure Note Primary Surgeon: Silvano Nolasco MD Anesthesia Provider: NIKHIL Salvador supervised by Lita Shaw CRNA Anesthesia Technique: General ET tube, Local (30 mL of half percent Marcaine) IV Fluids (mL): 900 Estimated Blood Loss (mL): 5 Drain/Tube Type: Other (None.) Indications: As above. Findings: As above. Complications: None. - Other Other Information/Narrative: After verbal and written informed consent was obtained detailing the operation, the alternatives the operation including no operation, risks of infection, bleeding requiring transfusion with its risks, nerve injury, and and after I met with the patient confirming the surgery and the site of surgery, the patient was brought to the operative suite and placed supine on the operating table. Great care was taken to avoid pressure points to prevent pressure necrosis or nerve injury. Monitoring devices were applied along with TEDs and pneumatic compression stockings (to prevent DVT). The patient received preoperative antibiotics for surgical prophylaxis. NIKHIL Salvador supervised by Lita Shaw CRNA sedated and anesthetized the patient for the entire procedure. The patient was prepped and draped in the usual sterile manner. With the patient draped my initials were clearly visible. A "time in" then confirmed that the patient was identified with 3 identifiers (name, date, and medical record number), the history and physical was updated and in the chart, the signed consent confirming the procedure was in the chart, the patient was in the correct position, the aforementioned prophylactic measures were in place or given, we had the correct personnel and equipment to complete the procedure and that anesthesia and the surgical team were given an opportunity to express any concerns. With the agreement of everyone in the room we proceeded with the operation. A standard inguinal incision was made and dissection was carried down to the external oblique aponeurosis using a combination of Metzenbaum scissors and Bovie electrocautery. The external oblique aponeurosis was cleared of overlying adherent tissue, and the external ring was delineated. The external oblique was incised with a scalpel and this incision was carried down to the external ring using Metzenbaum scissors. Care was taken not to injure the ilioinguinal nerve. Having expose the inguinal canal, the cord structures were from the canal using blunt dissection and a [place] drain was placed around the cord structures at the level of the pubic tubercle. This [place] drain was then used to retract the cord structures as needed. Adherent cremasteric muscle was dissected free from the cord using Bovie electrocautery. The cord was then explored using a combination of sharp and blunt dissection, and a very large indirect sac was found that extended into the scrotum and was associated with a communicating hydrocele. The hydrocele was drained. The sac was then dissected back to the internal ring and high ligated with a 0 PDSsuture. This was then transected the stump cauterized and allowed to retract back into the abdomen. An extra-large PerFix plug was then inserted into the internal ring and secured to the edge of the internal ring using a 2-0 PDS. The PerFix onlay patch was then secured to the pubic tubercle with a 2 0-PDS U stitch. The mesh was then secured to the conjoined tendon superiorly using interrupted 2-0 PDS sutures and secured to the shelving edge of Poupart's ligament inferiorly using interrupted 2-0 PDS sutures. The mesh was secured around the cord structures loosely with a 2-0 PDS suture thus creating a new internal ring. The [place] drain was then removed. Meticulous hemostasis was obtained using Bovie electrocautery. The wound was then injected superficially and deep using 30 mL of half percent Marcaine. The incision the external oblique was approximated using 3-0 Vicryl in a running fashion thus reforming the external ring. The skin incision was approximated with 4-0 Monocryl in a subcuticular fashion. The skin was cleaned of its prep and Dermabond was applied. At this point a timeout was performed that confirmed that all counts were correct x2, the p rocedure that was performed, the blood loss, the IV fluids administered, the patient's condition, and any concerns of the operating team had. Having tolerated the procedure well, the patient was taken recovery room in good and stable condition. Gentle downward traction ensured the testes were well seated in the scrotum. The plan is for outpatient discharge when the patient is adequately recovered. CPT 08095 This document was created in part using voice recognition technology. Because of the inherent limitations of the system, occasional same sounding word substitutions and grammatical errors do occur and persist despite proofreading. Please read this document for content.
[2022-05-11] MEDS ORDERED: HYDROcod/ACETAM 5/325 MG TABLET ONE (12:35)
[2022-05-11 12:49] VITALS: BP 130/77
--- NOTE | 2022-05-11 16:26 | ANESTHESIA POST OP EVALUATION ---
Anesthesia Post Eval - Post Anesthesia Eval Vitals: Last Vital Signs Temp 36.6 C 05/11/22 12:40 Pulse 78 05/11/22 12:40 Resp 20 05/11/22 12:40 BP 130/77 05/11/22 12:40 Pulse Ox 97 05/11/22 12:40 O2 Flow Rate CV Function Including HR & BP: Stable Pain Control: Satisfactory Nausea & Vomiting: Negative Mental Status: Baseline Respiratory Status: Airway Patent Hydration Status: Satisfactory Anesthesia Complications: None
== END 2022-05-11 07:50 | disposition home or self-care (01) ==
LOC: SDS 07:49
PROVIDERS: ATTEND Surgery
DX: K40.90 Unilateral inguinal hernia, without obstruction or gangrene, not specified as recurrent (principal); N43.3 Hydrocele, unspecified; E66.9 Obesity, unspecified; I10 Essential (primary) hypertension; Z68.32 Body mass index [BMI] 32.0-32.9, adult; Z87.891 Personal history of nicotine dependence
CPT/HCPCS: 49505; A9270; C1781; J0131; J0330; J0690; J7120

== ENCOUNTER 2023-04-01 10:03 | Outpatient (CLI) | payer MEDICARE ==
[2023-04-01 15:03] LABS: BASOPHILS % (AUTO) 0.9 %; EOSINOPHILS # (AUTO) 0.2 10^3/uL (0.0-0.7); EOSINOPHILS % (AUTO) 3.3 %; HCT - HEMATOCRIT 43.8 % (42.0-52.0); HGB - HEMOGLOBIN 14.5 g/dL (14.0-18.0); LYMPHOCYTES # (AUTO) 1.4 10^3/uL (1.5-3.5); LYMPHOCYTES % (AUTO) 30.1 %; MEAN CORPUSCULAR HEMOGLOBIN 35.7 pg (27.0-31.0); MEAN CORPUSCULAR HGB CONC 33.1 g/dL (32.0-36.0); MEAN CORPUSCULAR VOLUME 107.9 fL (80.0-94.0); MEAN PLATELET VOLUME 10.6 fL (7.4-11.4); MONOCYTES # (AUTO) 0.6 10^3/uL (0.0-1.0); MONOCYTES % (AUTO) 13.9 %; NEUTROPHILS # (AUTO) 2.4 10^3/uL (1.5-6.6); NEUTROPHILS % (AUTO) 51.6 %; PLT - PLATELET COUNT 94 10^3/uL (130-450); RED BLOOD COUNT 4.06 10^6/uL (4.70-6.10); RED CELL DISTRIBUTION WIDTH 14.1 % (12.0-15.0); WHITE BLOOD COUNT 4.6 x10^3/uL (4.8-10.8)
== END 2023-04-01 10:04 | disposition home or self-care (01) ==
LOC: LAB.S 10:03
PROVIDERS: ATTEND Internal Medicine
DX: E55.9 Vitamin D deficiency, unspecified (principal); D69.6 Thrombocytopenia, unspecified
CPT/HCPCS: 36415; 85025

== ENCOUNTER 2023-04-22 10:18 | Outpatient (CLI) | payer MEDICARE ==
[2023-04-22 15:06] LABS: BASOPHILS % (AUTO) 0.8 %; EOSINOPHILS # (AUTO) 0.1 10^3/uL (0.0-0.7); HCT - HEMATOCRIT 44.6 % (42.0-52.0); HGB - HEMOGLOBIN 14.5 g/dL (14.0-18.0); LYMPHOCYTES # (AUTO) 1.3 10^3/uL (1.5-3.5); LYMPHOCYTES % (AUTO) 27.3 %; MEAN CORPUSCULAR HEMOGLOBIN 35.2 pg (27.0-31.0); MEAN CORPUSCULAR HGB CONC 32.5 g/dL (32.0-36.0); MEAN CORPUSCULAR VOLUME 108.3 fL (80.0-94.0); MEAN PLATELET VOLUME 10.5 fL (7.4-11.4); MONOCYTES # (AUTO) 0.7 10^3/uL (0.0-1.0); NEUTROPHILS # (AUTO) 2.6 10^3/uL (1.5-6.6); NEUTROPHILS % (AUTO) 54.9 %; PLT - PLATELET COUNT 108 10^3/uL (130-450); RED BLOOD COUNT 4.12 10^6/uL (4.70-6.10); RED CELL DISTRIBUTION WIDTH 13.3 % (12.0-15.0); WHITE BLOOD COUNT 4.7 x10^3/uL (4.8-10.8)
== END 2023-04-22 10:19 | disposition home or self-care (01) ==
LOC: LAB.S 10:18
PROVIDERS: ATTEND Internal Medicine
DX: D72.819 Decreased white blood cell count, unspecified (principal); D75.89 Other specified diseases of blood and blood-forming organs; D69.6 Thrombocytopenia, unspecified
CPT/HCPCS: 36415; 85025

== ENCOUNTER 2023-09-03 14:35 | Outpatient (CLI) | payer MEDICARE ==
--- NOTE | 2023-09-03 16:01 | XRAY Report ---
PROCEDURE: Chest 2V INDICATIONS: PRE-OP EXAM TECHNIQUE: 2 views of the chest were acquired. COMPARISON: Chest x-ray 02/26/2023 FINDINGS: Surgical changes and devices: None. Lungs and pleura: No pleural effusions or pneumothorax. Lungs are clear. Mediastinum: Mediastinal contours appear normal. Heart size is normal. Bones and chest wall: No suspicious bony lesions. Overlying soft tissues appear unremarkable. IMPRESSION: No acute cardiopulmonary process. Reviewed by: Vivienne Shrestha MD on 09/03/2023 3:59 PM PDT Approved by: Vivienne Shrestha MD on 09/03/2023 3:59 PM PDT Station ID: [id number]
== END 2023-09-03 14:36 | disposition home or self-care (01) ==
LOC: DI 14:35
PROVIDERS: ATTEND Internal Medicine
DX: Z01.818 Encounter for other preprocedural examination (principal); I10 Essential (primary) hypertension; I49.3 Ventricular premature depolarization